=== PATIENT | male | born 1985 | race Caucasian/White ===

== ENCOUNTER 2017-08-22 19:58 | Emergency (ER) | END 2017-08-23 01:56 | disposition home or self-care (01) ==

== ENCOUNTER 2018-08-26 11:04 | Emergency (ER) | payer OTHER, MEDICAID ==
[~2018-08-26] VITALS: Wt 88.9 kg
[~2018-08-26 11:04] MED LIST: CEPH-443 PO; IBUP-1542 PO
[2018-08-26] MEDS ORDERED: KETOROLAC 60 MG INJ IM STA (13:43)
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
[2018-08-26] MEDS ORDERED: FLUORESCEIN STRIP BOTH EYES ONE (14:00)
[2018-08-26] MEDS ORDERED: SILVER SULFADIAZINE 1% 25 GM CR TOP ONE (14:00)
[2018-08-26] MEDS ORDERED: LIDOCAINE 4% CR TOP ONE (14:00)
[2018-08-26] MEDS ORDERED: TETRACAINE 0.5% 4 ML OPH BOTH EYES SCH (14:00)
[2018-08-26] MEDS ORDERED: HYDROCODONE/APAP (5/325) TAB PO ONE (14:00)
[2018-08-26] MEDS ORDERED: OPHTHALMIC IRRIG SOLUTION 120 ML BOTH EYES ONE (14:30)
[2018-08-26] MEDS ORDERED: HYDR-4011 PO (15:29)
[2018-08-26] MEDS ORDERED: ERYT1OIN6 BOTH EYES (15:29)
[2018-08-26] MEDS ORDERED: IBUP-1542 PO (15:29)
[2018-08-26] MEDS ORDERED: ERYTHROMYCIN 1 GM OPH OINT BOTH EYES ONE (15:30)
[2018-08-26] MEDS ORDERED: DIPHTH/TET/ACEL PERTUSS (ADULT) 0.5 ML VIAL IM* ONE (15:30)
== END 2018-08-26 16:00 | disposition home or self-care (01) ==
LOC: FTE 11:04
DX: T20.16XA Burn of first degree of forehead and cheek, initial encounter (principal); T26.01XA Burn of right eyelid and periocular area, initial encounter; T26.02XA Burn of left eyelid and periocular area, initial encounter; X15.0XXA Contact with hot stove (kitchen), initial encounter; Y92.9 Unspecified place or not applicable; Z23 Encounter for immunization; Z87.891 Personal history of nicotine dependence
CPT/HCPCS: 90471; 90715; 96372; 99284; J1885